=== PATIENT | female | born 1945 | race Caucasian/White ===

== ENCOUNTER 2017-10-24 05:24 | Observation (INO) | payer OTHER, MEDICARE ==
[2017-10-24] MEDS ORDERED: FAMOTIDINE 20 MG TAB PO ONE (06:00)
[2017-10-24] MEDS ORDERED: LR 1,000 ML IV ONE (06:00)
[2017-10-24] MEDS ORDERED: ceFAZolin 2 GM/SWFI 2 GM/20 ML SYR IVP ONE (06:00)
[2017-10-24] MEDS ORDERED: DEXAMETHASONE 4 MG/ML VIAL IVP ONE (06:00)
[2017-10-24] MEDS ORDERED: LIDOCAINE 1% 2 ML INJ ID PRN (06:00)
[2017-10-24] MEDS ORDERED: ROPIVACAINE 0.2% 80 MG, EPINEPHrine 0.2 MG, KETOROLAC TROMETHAMINE 30 MG, morphINE 10 M... IU ONE (06:00)
[2017-10-24] MEDS: ACETAMINOPHEN 325 MG TAB PO ONE ×2 (06:29→11:36)
--- NOTE | 2017-10-24 06:46 | PDANEPAE ---
ANE History of Present Illness 72 yo female with knee OA for R TKA. ANE Past Medical History - Cardiovascular History Hx Hypertension: Yes Hx Arrhythmias: No Hx Chest Pain: No Hx Coronary Artery / Peripheral Vascular Disease: Yes Hx CHF / Valvular Disease: No Hx Palpitations: No Cardiovascular History Comment: CAD -Nuclear stress test , Stress echo -12. WNL - Pulmonary History Hx COPD: Yes Hx Asthma/Reactive Airway Disease: Yes Hx Recent Upper Respiratory Infection: No Hx Oxygen in Use at Home: No Hx Sleep Apnea: No Sleep Apnea Screening Result - Last Documented: Negative Pulmonary History Comment: HX ASTHMA WELL CONTROLED, MILD COPD - last ER visit was in . - Neurologic History Hx Cerebrovascular Accident: No Hx Seizures: No Hx Dementia: No - Endocrine History Hx Diabetes: Yes Obesity: no Endocrine History Comment: NIDDM ON metformin - Renal History Hx Renal Disorders: No - Liver History Hx Hepatic Disorders: No - Neurological & Psychiatric Hx Hx Neurological and Psychiatric Disorders: Yes Neurological / Psychiatric History Comment: on Welbutrin -situational depression - Cancer History Hx Cancer: No - Congenital Disorder History Hx Congenital Disorders: No - GI History Hx Gastrointestinal Disorders: Yes Gastrointestinal History Comment: GERD - Other Health History Other Health History: HERPES SIMPLEX. BRIUSES EASILY. BILAT GLAUCOMA - Chronic Pain History Chronic Pain: Yes (ARTHRITIC JOINTS) - Surgical History Prior Surgeries: rhinoplasty,appy,tonsillectomy,. carpal tunnel. L TKA ANE Review of Systems Review of Systems: - Exercise capacity METS (RN): 4 METS - Systems Constitutional: Reports: no symptoms Cardiac: Reports: no symptoms Respiratory: Reports: no symptoms Gastrointestinal: Reports: no symptoms Muscolosketal: Reports: joint pain, other (legs "aren't getting enough O2" when she hikes) ANE Patient History - Allergies Allergies/Adverse Reactions: No Known Allergies Allergy (Verified 07/12/16 09:27) - Home Medications Home Medications: Aspirin [Aspirin 81mg (*)] 81 mg PO DAILY 06/28/16 [Last Taken 10/03/17] Multivitamins [Multivitamin (*)] 1 each PO DAILY 06/28/16 [Last Taken 10/03/17] Pseudoephedrine HCl [Sudafed 12-Hour] 120 mg PO DAILY PRN 06/28/16 [Last Taken 08/19/17] guaiFENesin [Mucinex 600 MG (*)] 600 mg PO DAILY PRN 06/28/16 [Last Taken 21:00] ALPRAZolam [Xanax 0.5 MG (*)] 0.5 mg PO HS PRN 09/13/17 [Last Taken 10/23/17 21: 00] Acetaminophen [Tylenol 325mg (*)] 325 - 650 mg PO Q6HRS PRN 09/13/17 [Last Taken 10/24/17 04:00] Brimonidine 0.15% [ALPHAGAN P 0.15% (RX)] 1 drops RTEYE BID 09/13/17 [Last Taken 10/23/17 21:00] Calcium Carbonate [Oyster Shell Calcium 500 mg (*)] 500 mg PO DAILY 09/13/17 [ Last Taken 10/21/17] Calcium Carbonate [Oyster Shell Calcium 500 mg (*)] 500 mg PO DAILY 09/13/17 [ Last Taken 10/23/17 07:00] Herbals/Supplements -Info Only 1 ea PO DAILY 09/13/17 [Last Taken 10/23/17 07:00 ] Ibuprofen [Motrin (*)] 200 mg PO DAILY PRN 09/13/17 [Last Taken 10/03/17] Latanoprost 0.005% [Xalatan 0.005% (*)] 1 drops EACHEYE HS 09/13/17 [Last Taken 10/23/17 21:00] Lisinopril [Zestril 20 mg (*)] 20 mg PO DAILY 09/13/17 [Last Taken 10/24/17 04: 00] Naproxen Sodium [Aleve 220 MG (*)] 220 mg PO DAILY PRN 09/13/17 [Last Taken ] - NPO status NPO Since - Liquids (Date): 10/23/17 NPO Since - Liquids (Time): 23:00 NPO Since - Solids (Date): 10/23/17 NPO Since - Solids (Time): 23:00 - Anes Hx Hx Anesthesia Complications (with details): low SpO2 after L TKA in 2016 - Smoking Hx Smoking Status: Never smoked Marijuana use: Yes - Alcohol Use Alcohol Use: Occasionally (6/week) - Family Anes Hx Family Anes Hx: neg - N/A Family Hx Anesthesia Complications: NONE ANE Labs/Vital Signs - Vital Signs Blood Pressure: 142/68 Heart Rate: 51 Respiratory Rate: 16 O2 Sat (%): 97 Height: 162.56 cm Weight: 60.328 kg ANE Physical Exam - Airway Neck exam: FROM Mallampati Score: Class 2 Mouth exam: normal dental/mouth exam - Pulmonary Pulmonary: no respiratory distress - Cardiovascular Cardiovascular: regular rate and rhythym - ASA Status ASA Status: II ANE Anesthesia Plan Anesthesia Plan: spinal Regional Anesthesia: adductor canal FNB
[2017-10-24] MEDS ORDERED: MIDAZOLAM 2 MG/2 ML VIAL IVP ONE (06:52)
--- NOTE | 2017-10-24 07:09 | PDHPUP ---
History & Physical Update H&P update statement: This history and physical update is based on an assessment of the patient which was completed after admission or registration (within 24 hours), but prior to the surgery/procedure. H&P update: H&P reviewed & patient examined, no change in patient's condition since H&P completed
[2017-10-24] MEDS ORDERED: PROPOFOL/EMULSION 500 MG/50 ML BOTTLE IV ONE ×2 (07:10→08:43)
[2017-10-24] MEDS ORDERED: LIDOCAINE 2% 5 ML SDV ONE (07:10)
[2017-10-24] MEDS ORDERED: fentaNYL 100 MCG/2 ML INJ ONE (07:10)
[2017-10-24] MEDS ORDERED: THROMBIN (BOVINE) 5,000 UNIT VIAL TP ONE ×2 (07:13→07:46)
[2017-10-24] MEDS ORDERED: CALCIUM CHLORIDE 1 GM/10 ML INJ ONE (07:14)
[2017-10-24] MEDS ORDERED: ceFAZolin 1 GM/5 ML SYR ONE (07:14)
[2017-10-24] MEDS ORDERED: ALBUTEROL 3 ML DEYVIAL IH PRN (09:40)
[2017-10-24] MEDS ORDERED: ONDANSETRON 4 MG/2 ML VIAL IVP PRN ×2 (09:40→10:12)
[2017-10-24] MEDS ORDERED: PROMETHAZINE HCL 25 MG/ML INJ IVP PRN ×2 (09:40→10:12)
[2017-10-24] MEDS ORDERED: fentaNYL 100 MCG/2 ML INJ IVP PRN (09:40)
[2017-10-24] MEDS ORDERED: LR 500 ML IV PRN (09:40)
[2017-10-24] MEDS ORDERED: ENALAPRILAT DIHYDRATE 1.25 MG/ML VIAL IVP PRN (09:40)
[2017-10-24] MEDS ORDERED: NALOXONE HCL 0.4 MG/ML INJ IVP PRN (09:40)
[2017-10-24] MEDS ORDERED: ACETAMINOPHEN 500 MG TAB PO PRN (09:40)
[2017-10-24] MEDS ORDERED: LABETALOL HCL 5 MG/ML 20 ML MDV IVP PRN (09:40)
[2017-10-24] MEDS ORDERED: DIAZEPAM 10 MG/2 ML SYR IVP PRN (09:40)
[2017-10-24] MEDS ORDERED: OXYCODONE/APAP 5/325 TAB PO PRN (09:40)
[2017-10-24] MEDS ORDERED: BUPIVACAINE 0.5% 30 ML SDV ONE (09:55)
--- NOTE | 2017-10-24 10:10 | POSTOPPROG ---
Post Op Note Date of Operation: 10/24/17 Surgeon: Sierra Estrada Fish Dressing Machine Feeder: Flori Clark Anesthesiologist: Dr. Clayton Anesthesia: Spinal Pre-op Diagnosis: right knee osteoarthritis Post-op Diagnosis: right knee osteoarthritis Indication: right knee pain Procedure: right TKA Inf/Abcess present in the surg proc area at time of surgery?: No EBL: Minimal Complications: none
--- NOTE | 2017-10-24 10:11 | POSTANESTH ---
Post Anesthetic Evaluation Cardiovascular Status: Normal, Stable Respiratory Status: Normal, Stable Level of Consciousness/Mental Status: Can Participate in Eval, Mildly Sleepy, Arousable Pain Control: Adequate, Prn Tx Ordered Nausea/Vomiting Control: Adequate, Prn Tx Ordered Complications Possibly Related to Anesthesia: None Noted (R adductor canal block placed with spinal block still in effect. Pt able to move L leg. Sensation to cold intact to hip.)
[2017-10-24] MEDS ORDERED: POLYETHYLENE GLYCOL 3350 17 GM PKT PO PRN (10:12)
[2017-10-24] MEDS ORDERED: DIPHENOXYLATE/ATROPINE LOMOTIL 1 TAB PO PRN (10:12)
[2017-10-24] MEDS ORDERED: MAGNESIUM HYDROXIDE 30 ML UDCUP PO PRN (10:12)
[2017-10-24] MEDS ORDERED: BISACODYL 10 MG SUPP PR PRN (10:12)
[2017-10-24] MEDS ORDERED: PROMETHAZINE HCL 25 MG SUPPR PR PRN (10:12)
[2017-10-24] MEDS ORDERED: CYCLOBENZAPRINE 10 MG TAB PO PRN (10:12)
[2017-10-24] MEDS ORDERED: FAMOTIDINE 20 MG TAB PO PRN (10:12)
[2017-10-24] MEDS ORDERED: ONDANSETRON DISINTEGRATING 4 MG TAB PO PRN (10:12)
[2017-10-24] MEDS ORDERED: LACTULOSE 20 GM/30 ML UDCUP PO PRN (10:12)
--- NOTE | 2017-10-24 10:12 | SOAPPROG ---
SOAP Progress Note Assessment/Plan: Assessment/Plan: 72y/o female s/p right TKA - stable and doing well - orders as written - PT/OT, no knee flexion beyond 90 degrees - post-op xrays pending - TEDs/SCDs, will start Xarelto post-op - anticipate discharge tomorrow - call with issues or concerns 10/24/17 10:10 Subjective: No pain, doing well Objective: Vital Signs Temp Pulse Resp BP Pulse Ox 36.8 C 63 14 108/57 L 100 10/24/17 09:55 10/24/17 09:54 10/24/17 10:06 10/24/17 10:06 10/24/17 10:06 NAD, well appearing, no distress EOMi, face symmetric VSS incision clean, dressed ICD10 Worksheet Patient Problems: Problems Problem Status Onset Knee osteoarthritis Acute
[2017-10-24] MEDS ORDERED: ALBUTEROL 60 PUFFS/8 GM MDI IH PRN (10:17)
[2017-10-24] MEDS ORDERED: guaiFENesin 600 MG TAB.ER PO PRN (10:17)
[2017-10-24] MEDS ORDERED: ACYCLOVIR 400 MG TAB PO PRN (10:17)
[2017-10-24] MEDS ORDERED: ALPRAZolam 0.5 MG TAB PO PRN (10:17)
[2017-10-24] MEDS ORDERED: LR 1,000 ML IV SCH (10:30)
--- NOTE | 2017-10-24 10:41 | GOP ---
[f rep st] OPERATIVE REPORT DATE OF OPERATION: 10/24/2017 SURGEON: Sierra Estrada MD PULP GRINDER: Flori Clark, AMANDA ANESTHESIA: Spinal with sedation. PREOPERATIVE DIAGNOSIS: Severe osteoarthritis, right knee. POSTOPERATIVE DIAGNOSIS: Severe osteoarthritis, right knee. PROCEDURE PERFORMED: Right total knee arthroplasty. FINDINGS: Preoperative x-rays of the patient's right knee demonstrated severe osteoarthritis most pr onounced in the lateral and patellofemoral compartments. There was tricompartmental involvement. At the time of surgery, this finding was confirmed. There was complete loss of the articular cartilage in the patellofemoral and lateral compartments and moderate to severe loss on the medial side as wel l. A cemented Frederick and Nephew Journey II total knee arthroplasty was performed. The size 4 cruciat e stabilized Oxinium femoral component was cemented into place on the femoral side and a size 3 tibia l baseplate was utilized on the tibia. A 10 mm thick cross-linked polyethylene insert was utilized o n the tibial side as well. A 35 mm round patellar component was cemented on the patella. Following implantation of the components, the knee was taken through range of motion and achieved full extensio n and 135 degrees of flexion. The patella tracked well in the trochlear groove. The knee was stable to varus and valgus stressing in extension and 30 degrees of flexion. The flexion and extension gap s were balanced. ESTIMATED BLOOD LOSS: Less than 100 cc. DESCRIPTION OF PROCEDURE: The patient was taken the operating room, placed in a supine position on t he operating table. Following induction of adequate spinal anesthesia and sedation, the knee and leg were prepped and draped in the usual sterile manner. The patient received 1 g of IV Ancef. The leg was elevated and exsanguinated. The tourniquet inflated to 275 mmHg. The DeMayo leg monson was use d throughout the procedure for positioning. A midline incision was made extending from 2 fingerbread ths above the superior pole of the patella distally to the tibial tubercle. Incision was carried alisha n through subcutaneous tissue to the retinaculum of the knee. A medial parapatellar arthrotomy was t hen performed. The patella was everted laterally and the thickness of the patella was measured. A 9 mm cut was taken from the patella leaving 13 mm. The patella was then placed in the lateral gutter for later preparation. The knee was flexed up and a distal femoral drill hole was placed. The intra medullary referencing was used for the distal femoral cut. The femoral cutting block was positioned on the distal femur and pinned. A +2 cut was taken from the femur due to a mild flexion contracture. The femur was then sized and the size 4 femoral component was chosen as the best fit. The size 4 f emoral block was pinned on the distal femur and the anterior, posterior and chamfer cuts were made. The size 4 femoral trial was placed on the distal femur and pinned and then the notch was cleared wit h the reamer followed by the box osteotome. The debris was cleared from the notch. The trial was re moved. Our attention was then turned to the tibia. The posterior retractor was inserted and the tib ia was pulled forward. Again, intramedullary referencing was utilized for the tibial cut. The tibia l cutting block was positioned and pinned and then the tibia was cut. Care was taken to protect the patellar tendon. The lollipop was then inserted and good flexion and extension gap was noted. The l bisi labor arbitrator hearing office was used to open up the extension space and both the menisci were excised. The refrigeration mechanic helper ior capsule was released from the posterior tibia. The tibia was then sized. The size 3 tibial comp onent was chosen as the best fit. It was pinned in then the keel punch was utilized. A trial reduct ion was performed with these components and a 9 mm thick polyethylene. Good fit was noted as well as stability. The 10 mm thick polyethylene was also trialed and again excellent extension was achieved . The patella was prepared with the drill guide. All the bony surfaces were then thoroughly irrigat ed and dried. The cement was mixed. The tibial component was cemented into place first followed by the femoral component and the patella. The knee was brought into extension with a 10 mm trial polyet hylene in place. Excess cement was removed from around the edges of the components. Once the cement had set, the knee was flexed up and the trial polyethylene was removed. The 10 mm polyethylene inse rt was opened and inserted without difficulty. The knee was then thoroughly irrigated and the retina culum of the knee was closed using #2 FiberWire in a [id number] fashion. The posterior aspect o f the capsule was injected with joint cocktail prior to inserting the polyethylene. The extensor mec hanism was also injected with the joint cocktail. The subcutaneous tissues were closed using 2-0 Keenan ryl. The skin was closed using bossman. The deep and superficial portions of the wound were injecte d with PRP to enhance wound healing. Sterile dressings were applied. The patient tolerated the proc edure well. There were no complications. Estimated blood loss minimal. Final sponge, needle counts were correct. The patient was transported to the recovery room in good condition. /[id number]/MODL
[2017-10-24] MEDS: ACETAMINOPHEN 325 MG TAB PO SCH ×3 (12:17→23:37)
[2017-10-24] MEDS: oxyCODONE IR 5 MG TAB PO PRN (12:18)
[2017-10-24] MEDS: ceFAZolin 2 GM/DEXTROSE 100 ML IV SCH ×2 (13:50→21:13)
[2017-10-24] MEDS: metFORMIN HCL 500 MG TAB PO SCH (17:32)
[2017-10-24] MEDS: BRIMONIDINE 0.15% 5 ML OPHT.BTL RTEYE SCH (20:50)
[2017-10-24] MEDS: METOPROLOL TARTRATE 25 MG TAB PO SCH (20:57)
[2017-10-24] MEDS ORDERED: LATANOPROST 0.005% 2.5 ML OPHT DROPS EACHEYE SCH (21:00)
[2017-10-24] MEDS: SENNOSIDES/DOCUSATE SODIUM TAB PO SCH (21:00)
[2017-10-24] MEDS ORDERED: ATORVASTATIN CALCIUM 10 MG TAB PO SCH (21:00)
[2017-10-24] MEDS: buPROPion SR 150 MG TAB PO SCH (21:00)
[2017-10-25] MEDS: ACETAMINOPHEN 325 MG TAB PO SCH ×2 (05:14→12:46)
[2017-10-25] MEDS: oxyCODONE IR 5 MG TAB PO PRN ×2 (05:14→12:47)
[2017-10-25 07:25] VITALS: TEMP 97.6
[2017-10-25] MEDS ORDERED: HYDROCHLOROTHIAZIDE 25 MG TAB PO SCH (09:00)
[2017-10-25] MEDS ORDERED: CALCIUM CARBONATE 500 MG TAB PO SCH (09:00)
[2017-10-25] MEDS ORDERED: LISINOPRIL 20 MG TAB PO SCH (09:00)
[2017-10-25] MEDS: metFORMIN HCL 500 MG TAB PO SCH (09:07)
[2017-10-25] MEDS: SENNOSIDES/DOCUSATE SODIUM TAB PO SCH (09:07)
[2017-10-25] MEDS: buPROPion SR 150 MG TAB PO SCH (09:09)
[2017-10-25] MEDS: BRIMONIDINE 0.15% 5 ML OPHT.BTL RTEYE SCH (09:11)
[2017-10-25] MEDS: METOPROLOL TARTRATE 25 MG TAB PO SCH (09:12)
[2017-10-25 11:55] VITALS: BP 114/53; PULSE 66; RESP 16; O2SAT 95
--- NOTE | 2017-10-25 14:16 | SOAPPROG ---
SOAP Progress Note Assessment/Plan: Assessment/Plan: 72y/o female s/p right TKA - stable and doing well - orders as written - PT/OT, no knee flexion beyond 90 degrees - post-op xrays stable - TEDs/SCDs, will start Xarelto this evening - discharge home today, return precautions discussed - call with issues or concerns 10/25/17 14:14 Subjective: Minimal pain. Walking well. Feels "dry" and coughing some due to that. Eating, drinking, voiding Objective: Vital Signs Temp Pulse Resp BP Pulse Ox 36.4 C 66 16 114/53 L 95 10/25/17 07:18 10/25/17 11:54 10/25/17 11:54 10/25/17 11:54 10/25/17 11:54 Laboratory Results 10/25/17 04:46 10/24/17 10/25/17 10/26/17 05:59 05:59 05:59 Intake Total 3065 Output Total 505 Balance 2560 NAD, well appearing, no distress EOMi, face symmetric MAEx4 knee extension near 0 knee flexion to 80 incision CDI, no erythema or active drainage new dressing placed ICD10 Worksheet Patient Problems: Problems Problem Status Onset Knee osteoarthritis Acute
--- NOTE | 2017-10-25 15:11 | ASMTCMCOM ---
CM Note CM Note Notes: Pt medically stable for d/c with [facility] PT and family support. No orders in [facility] Tresa with [facility] will call MD office for orders. Date Signed: 10/25/2017 03:11 PM Electronically Signed By:EFRA Gould
--- NOTE | 2017-10-25 15:12 | ASDISCHSUM ---
Discharge Information Plan Status:Home with Home Health Medically Cleared to Leave: Discharge Date:10/25/2017 03:02 PM CM D/C Disposition:Home Health Service ADT D/C Disposition:[id number] Projected Discharge Date:10/25/2017 11:00 AM Transportation at D/C: Discharge Delay Reason: Follow-Up Date:10/25/2017 11:00 AM Discharge Slot: Final Diagnosis: Placement Information Referral Type:*Home Health Care Services Referral ID:[id number] Provider Name:[facility] [place] Address 1:[address] [place] [address] Address 2: City:[place] Selection Factors: State:[place] Patient Contact Information Contact Name:PRAFUL Relationship: Address:[address] City:[place] Alternate Phone: State/Zip Code:[place] [address] Email: Financial Information Financial Class: Primary Plan Desc:MEDICARE OUTPATIENT Primary Plan Number:[id number] Secondary Plan Desc:AARP/MDR SUPPLEMENT Secondary Plan Number:[id number] Assessment Information CM Costume Specialist Assessment CJR Did you go to joint Answers: Yes class? CM Note CM Note Notes: Jonelle is planning to discharge home with the support of her . She lives in [place], [place] and would like to have [facility] PT services for the first few days after surgery. She used [facility] in the past for her other knee surgery and they did a great job. Confirmed address: [address] [place] [id number]. 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 Jonelle scored a 10 on the RAPT scale. Date Signed: 10/20/2017 10:15 AM Electronically Signed By:Jessika Grossman [facility] CM Progress Note CM Note CM Note Notes: Pt medically stable for d/c with [facility] PT and family support. No orders in [facility] Tresa with [facility] will call MD office for orders. Date Signed: 10/25/2017 03:11 PM Electronically Signed By:EFRA Gould Intervention Information Intervention Type:*Incorrect Registration Date of Service:10/24/2017 10:22 AM Patient Type:Inpatient Staff Member:GRICELDA Pritchard Courtney Hours: Discipline: Severity: Comment: Intervention Type:*JEROD-Signed Date of Service:10/24/2017 03:01 PM Patient Type:Observation Staff Member:Jessika Grossman Hours: Discipline: Severity: Comment:
--- NOTE | 2017-10-26 12:18 | PDIAF ---
- Diagnosis Code Status: Full Code - Medication Management Discharge Medications: Medications to Continue on Transfer Multivitamins [Multivitamin (*)] 1 each PO DAILY 06/28/16 [Last Taken 10/03/17] guaiFENesin [Mucinex 600 MG (*)] 600 mg PO DAILY PRN 06/28/16 [Last Taken 21:00] Acyclovir [Zovirax 400 mg (*)] 400 mg PO TID PRN #0 tab 07/15/16 [Last Taken 10/26] Albuterol [Proventil Inhaler HFA (*)] 1 - 2 puffs IH Q4H PRN #0 mdi 07/15/16 [ Last Taken 10/17/17] Atorvastatin Calcium [Lipitor 10 mg (*)] 10 mg PO HS #0 tab 07/15/16 [Last Taken 10/22/17] Hydrochlorothiazide [HCTZ (*)] 25 mg PO DAILY #0 tab 07/15/16 [Last Taken 07:00] Metoprolol Tartrate [Lopressor 25 mg (*)] 12.5 mg PO BID #0 tab 07/15/16 [Last Taken 10/24/17 04:00] buPROPion SR [Wellbutrin 150mg SR (*)] 150 mg PO BID #0 tab 07/15/16 [Last Taken 10/24/17 04:00] metFORMIN HCL [Glucophage 500 mg (*)] 1,000 mg PO BIDMEAL #0 tab 07/15/16 [Last Taken 10/23/17 17:00] ALPRAZolam [Xanax 0.5 MG (*)] 0.5 mg PO HS PRN 09/13/17 [Last Taken 10/23/17 21: 00] Brimonidine 0.15% [Alphagan P 0.15%] 1 drops RTEYE BID 09/13/17 [Last Taken 21:00] Calcium Carbonate [Oyster Shell Calcium 500 mg (*)] 500 mg PO DAILY 09/13/17 [ Last Taken 10/21/17] Calcium Carbonate [Oyster Shell Calcium 500 mg (*)] 500 mg PO DAILY 09/13/17 [ Last Taken 10/23/17 07:00] Herbals/Supplements -Info Only 1 ea PO DAILY 09/13/17 [Last Taken 10/23/17 07:00 ] Latanoprost 0.005% [Xalatan 0.005% (*)] 1 drops EACHEYE HS 09/13/17 [Last Taken 10/23/17 21:00] Lisinopril [Zestril 20 mg (*)] 20 mg PO DAILY 09/13/17 [Last Taken 10/24/17 04: 00] Acetaminophen [Tylenol 325mg (*)] 650 mg PO Q6HRS tab 10/25/17 [Last Taken Unknown] Rivaroxaban [Xarelto 10mg (*)] 10 mg PO DAILY 12 Days #12 tab 10/25/17 [Last Taken Unknown] oxyCODONE IR [Oxycodone Ir (*)] 5 - 10 mg PO Q3HRS PRN tab 10/25/17 [Last Taken Unknown] Discharge Medications: Refer to the Discharge Home Medication list for PRN reason. - Orders Services needed: Home Care, Physical Therapy, Occupational Therapy Home Care Face to Face: I certify that this patient was under my care and that I had the required [id number] encounter meeting the encounter requirements on the discharge day. My findings support the fact that the patient is homebound as defined in Home Care Face to Face Continued: CMS Chapter 7 Medicare Benefits Manual 30.1.1 , The condition of the patient is such that there exists a normal inability to leave home and consequently, leaving home would require a considerable and taxing effort. Diet Recommendation: no restrictions on diet Diet Texture: Regular Texture Diet Dileep Stockings Discontinue Date: continue TEDs until walking 100 yards tid Wound Care Instructions: keep incision clean and dry Sutures/[place] Site: bossman will be removed in office 2 weeks post-op Activity/Weight Bearing Restrictions: WBAT. no knee flexion beyond 90 degrees - Follow Up Care Current Providers and Referrals: Suha Calles MD [Primary Care Provider] - Sierra Estrada MD [Medical Doctor] -
== END 2017-10-25 15:02 | disposition home health service (06) ==
LOC: F3N 05:24 → INTOOBSV 05:24 → F3N 11:08
PROVIDERS: ADMIT Orthopaedic Surgery; ATTEND Orthopaedic Surgery
PROC: 0SRC0J9 Replacement of Right Knee Joint with Synthetic Substitute, Cemented, Open Approach (ICD-10-PCS; principal; 2017-10-24 07:15)
DX: M17.11 Unilateral primary osteoarthritis, right knee (principal); M25.561 Pain in right knee; I25.10 Atherosclerotic heart disease of native coronary artery without angina pectoris; E11.9 Type 2 diabetes mellitus without complications; I10 Essential (primary) hypertension; E78.5 Hyperlipidemia, unspecified; J45.909 Unspecified asthma, uncomplicated; K21.9 Gastro-esophageal reflux disease without esophagitis; Z96.652 Presence of left artificial knee joint
CPT/HCPCS: 27447; 73560; 88311; 97116; 97161; 97165; C1713; C1776; G8978; G8979; G8980; G8987; G8988; G8989; J0171; J0690; J1100; J1885; J2250; J2704; J2795; J3010

== ENCOUNTER → 2018-02-08 | Outpatient (CLI) | payer OTHER, MEDICARE | LOC: FIMAGING 08:10 | PROVIDERS: ATTEND Internal Medicine | DX: Z12.31 Encounter for screening mammogram for malignant neoplasm of breast (principal) ==

== ENCOUNTER → 2018-04-24 | Outpatient (CLI) | payer OTHER, MEDICARE | LOC: FIMAGING 06:56 | PROVIDERS: ATTEND Internal Medicine | DX: N28.1 Cyst of kidney, acquired (principal) ==